=== PATIENT | female | born 1980 | race American Indian/Alaskan Native ===

== ENCOUNTER 2022-01-27 22:58 | Emergency (ER) | payer MEDICAID ==
[2022-01-28] MEDS ORDERED: SODIUM CHLORIDE 0.9% 1000 ML 1,000 ML IV ONE (02:34)
[2022-01-28] MEDS ORDERED: ONDANSETRON 4 MG/2 ML INJ IV ONE ×2 (02:34→05:55)
[2022-01-28] MEDS ORDERED: MORPHINE 4 MG/1 ML INJ IV ONE ×2 (02:34→04:18)
[2022-01-28 03:01] LABS: Basophils # (Auto) 0.1 K/mm3 (0.0-0.1); Basophils % (Auto) 1.8 % (0.0-1.8); Eosinophils # (Auto) 0.2 K/mm3 (0.0-0.4); Eosinophils % (Auto) 2.9 % (0.0-4.3); Hematocrit 33.7 % (30.3-42.9); Lymphocytes # (Auto) 1.7 K/mm3 (1.2-5.4); Mean Corpuscular HGB Conc 33 % (30-34); Mean Corpuscular Volume 75 fl (79-97); Monocytes # (Auto) 0.7 K/mm3 (0.0-0.8); Monocytes % (Auto) 11.8 % (0.0-7.3); Platelet Count 232 K/mm3 (140-440); Red Blood Count 4.52 M/mm3 (3.65-5.03); Red Cell Distribution Width 19.7 % (13.2-15.2)
[2022-01-28 03:23] LABS: Alanine Aminotransferase 14 units/L (7-56); Albumin 4.3 g/dL (3.9-5); BUN/Creatinine Ratio 14; Blood Urea Nitrogen 11 mg/dL (7-17); Hemolysis Index 15
[2022-01-28 04:11] LABS: Bacteria,Urine 2+ /HPF (Negative); Bilirubin,Urine NEG (Negative); Blood,Urine LG (Negative); Calcium Oxalate Crystals,Urine 3+; Color,Urine Yellow (Yellow); Protein,Urine <15 mg/dL mg/dL (Negative); Urobilinogen,Urine < 2.0 mg/dL (<2.0)
[2022-01-28] MEDS ORDERED: METOCLOPRAMIDE 10 MG/2 ML INJ IV ONE (04:19)
[2022-01-28] MEDS ORDERED: LIDOCAINE-MPF (1%) 10 MG/1 ML VIAL 5 ML INFILTRATI ONE (05:01)
--- NOTE | 2022-01-28 05:42 | Emergency Department Report ---
ED Female HPI - General Chief complaint: Abdominal Pain Stated complaint: 3 WEEKS VAG BLEEDING Source: patient Mode of arrival: Ambulatory Limitations: No Limitations - History of Present Illness Initial comments: Patient is a A0 41-year-old -[place] female with no past medical history who presents to the ED with complaint of acute onset persistent heavy vaginal bleeding intermittently for the last 3 weeks with suprapubic pain. Patient also states that her LMP was January 13, 2022 and ever since she started bleeding the bleeding has not stopped. Patient states that in the last 3 days the bleeding has been heavier and that the pain has also worsened. Patient states that tonight she was unable to sleep because of worsening pelvic pain and heavy vaginal bleeding with clots. Patient denies dizziness, syncope, chest pain or shortness of breath, nausea and vomiting or diarrhea, fever, chills, cough, sore throat, headache, traumatic injury, back pain, dysuria, urinary frequency and urgency. MD Complaint: vaginal bleeding, pelvic pain -: Sudden, week(s) (3) Location: suprapubic, other (Vaginal ) Radiation: suprapubic, LLQ, RLQ Severity: severe Severity scale (0 -10): 8 Quality: cramping, sharp Consistency: constant Improves with: none Worsens with: none Are you Now?: No (Unsure) Associated Symptoms: denies other symptoms, vaginal bleeding, abdominal pain (Suprapubic pain). denies: vaginal discharge, nausea/vomiting, fever/chills, headaches, loss of appetite, dysuria, hematuria, rash, shortness of breath, syncope, weakness - Related Data Sexually active: Yes : 4 Para: 4 A: 0 Previous Rx's Medication Instructions Recorded Last Taken Type Ibuprofen [Motrin] 800 mg PO Q8HR PRN #30 tablet 01/28/22 Unknown Rx Ondansetron [Zofran Odt] 4 mg PO Q8HR PRN #20 tab.rapdis 01/28/22 Unknown Rx oxyCODONE /ACETAMINOPHEN [Percocet 1 tab PO Q6HR PRN #12 tablet 01/28/22 Unknown Rx 5/325] Allergies Allergy/AdvReac Type Severity Reaction Status Date / Time No Known Allergies Allergy Verified 02/21/16 02:58 ED Review of Systems ROS: Stated complaint: 3 WEEKS VAG BLEEDING Other details as noted in HPI Constitutional: denies: chills, fever Eyes: denies: eye pain, eye discharge, vision change ENT: denies: ear pain, throat pain Respiratory: denies: cough, shortness of breath, wheezing Cardiovascular: denies: chest pain, palpitations, dyspnea on exertion, edema, syncope Endocrine: no symptoms reported Gastrointestinal: abdominal pain (Suprapubic pain). denies: nausea, vomiting, diarrhea Genitourinary: abnormal menses (Heavy vaginal bleeding). denies: urgency, dysuria, discharge Musculoskeletal: denies: back pain, joint swelling, arthralgia Skin: denies: rash, lesions Neurological: denies: headache, weakness, paresthesias Psychiatric: denies: anxiety, depression Hematological/Lymphatic: denies: easy bleeding, easy bruising ED Past Medical Hx - Social History Smoking Status: Never Smoker Substance Use Type: None - Medications Home Medications: Home Medications Medication Instructions Recorded Confirmed Last Taken Type Ibuprofen [Motrin] 800 mg PO Q8HR PRN #30 tablet 01/28/22 Unknown Rx Ondansetron [Zofran Odt] 4 mg PO Q8HR PRN #20 tab.rapdis 01/28/22 Unknown Rx oxyCODONE /ACETAMINOPHEN [Percocet 1 tab PO Q6HR PRN #12 tablet 01/28/22 Unknown Rx 5/325] ED Physical Exam - General Limitations: No Limitations General appearance: alert, in no apparent distress - Head Head exam: Present: atraumatic, normocephalic, normal inspection - Eye Eye exam: Present: normal appearance, PERRL, EOMI Pupils: Present: normal accommodation - ENT ENT exam: Present: normal exam, normal orophraynx, mucous membranes moist, TM's normal bilaterally, normal external ear exam - Neck Neck exam: Present: normal inspection, full ROM. Absent: tenderness, lymphadenopathy - Respiratory Respiratory exam: Present: normal lung sounds bilaterally. Absent: respiratory distress, wheezes, rales, chest wall tenderness, accessory muscle use, decreased breath sounds, prolonged expiratory - Cardiovascular Cardiovascular Exam: Present: normal rhythm, tachycardia, normal heart sounds. Absent: systolic murmur, diastolic murmur, rubs, gallop - GI/Abdominal GI/Abdominal exam: Present: soft, tenderness (Palpable suprapubic tenderness), normal bowel sounds. Absent: guarding, rebound, rigid, hyperactive bowel sounds, hypoactive bowel sounds, organomegaly - Bi-manual exam: Present: other (Pelvic exam deferred at this time patient declined) - Extremities Exam Extremities exam: Present: normal inspection, full ROM, normal capillary refill. Absent: tenderness - Back Exam Back exam: Present: normal inspection, full ROM. Absent: tenderness, CVA tenderness (R), CVA tenderness (L), muscle spasm, paraspinal tenderness, v ertebral tenderness - Neurological Exam Neurological exam: Present: alert, oriented X3, CN II-XII intact, normal gait, reflexes normal - Psychiatric Psychiatric exam: Present: normal affect, normal mood, anxious - Skin Skin exam: Present: warm, dry, intact, normal color. Absent: rash ED Course Vital Signs 01/27/22 01/28/22 23:06 02:24 Temperature 98.5 F Pulse Rate 102 H 90 Respiratory 16 14 Rate Blood Pressure 135/98 Blood Pressure 139/85 [Right] O2 Sat by Pulse 94 100 Oximetry - Reevaluation(s) Reevaluation #1: 01/28/22 06:25 I paged and discussed the patient's case and findings with the CLERICAL CLERK physician on-call Dr. Covarrubias who advised that the patient be treated in the ED with methotrexate immediately for suspected ectopic and that the patient be discharged home on pain medications with ectopic precautions and be advised to follow-up with his clinic within 3 days for further evaluation. ED Medical Decision Making - Lab Data Result diagrams: 01/28/22 02:42 01/28/22 02:42 - Radiology Data Radiology results: report reviewed, image reviewed [facility] [address] [place] [address] Ultrasound Report Signed Patient: ISSAC RÍOS MR#: [id number] : 1980 Acct:[id number] Age/Sex: 41 / F ADM Date: 01/27/22 Loc: ED Attending Dr: Ordering Physician: APRIL TAEVRAS Date of Service: 01/28/22 Procedure(s): US OB <= 14 weeks fetus Accession Number(s): [id number] cc: APRIL TAVERAS US OB <= 14 weeks fetus INDICATION / CLINICAL INFORMATION: PAIN, BLEEDING COMPARISON: None available. TECHNIQUE: Using a transcutaneous probe, multiple grayscale, color Doppler, and spectral Doppler images of the uterus and fetus were captured and stored. FINDINGS: Uterus measures 11.5 x 6.9 x 7.6 cm. The endometrium appears thickened with no evidence of intrauterine gestational sac. Right ovary measures 4.3 x 2.9 x 3.1 cm. Small right ovarian cysts present. Left ovary measures 4.7 x 2.3 x 2.9 cm. Left ovary is unremarkable. The visualized portion of the urinary bladder is unremarkable. IMPRESSION: 1. No ultrasound evidence of intrauterine gestation. Signer Name: Jackson Garcia II, MD Signed: 01/28/2022 5:37 AM Workstation Name: [id number] Transcribed By: KOTA Dictated By: JACKSON GARCIA II, MD Electronically Authenticated By: JACKSON GARCIA II, MD Signed Date/Time: 01/28/22536 DD/ 4 TD/TT: - Medical Decision Making This is a A0 41-year-old -[place]ian female with no past medical history who presents to the ED with complaint of acute onset persistent heavy vaginal bleeding intermittently for the last 3 weeks with suprapubic pain. Patient also states that her LMP was January 13, 2022 and ever since she started bleeding the bleeding has not stopped. Patient states that in the last 3 days the bleeding has been heavier and that the pain has also worsened. Patient states that tonight she was unable to sleep because of worsening pelvic pain and heavy vaginal bleeding with clots. In the ED, patient is alert and oriented x3 and is not in any distress but appears to be in significant pain. Patient was treated for pain in the ED and was given antiemetics and normal saline 1 L IV bolus x1. Lab test results were reviewed and showed a positive serum hCG with hCG quant of 4906. Urinalysis was unremarkable except for gross hematuria. The rest of the lab test results were nonactionable. Patient declined transvaginal ultrasound but consented to pelvic ultrasound. The pelvic ultrasound showed no IUP. On reevaluation, patient pain is well controlled medication. These findings were discussed with the CLERICAL CLERK physician on-call Dr. Covarrubias who advised that the patient be treated in the ED with methotrexate immediately for suspected ectopic and that the patient be discharged home on pain medications with ectopic precautions and be advised to follow-up with his clinic within 3 days for further evaluation. Patient was therefore discharged home after the treatment with methotrexate in the ED. Patient was advised to follow-up with Dr. Covarrubias in 3 to 5 days for reevaluation. Patient is advised to contact Dr. Covarrubias for follow-up of his in the morning on Thursday December 30, 2021 to schedule a follow-up appointment the next week. Patient was advised to return to the ED immediately if symptoms get worse. - Differential Diagnosis Ectopic ; UTI; dysmenorrhea; threatened miscarriage; fibroids Critical care attestation.: If time is entered above; I have spent that time in minutes in the direct care of this critically ill patient, excluding procedure time. ED Disposition Clinical Impression: as incidental finding, Threatened miscarriage in early , Nausea and vomiting in adult patient, Abdominal pain during in first trimester, Vaginal bleeding in patient after first trimester Ectopic without intrauterine Qualifiers: Location of ectopic : unspecified location Qualified Code(s): O00.90 - Unspecified ectopic without intrauterine Disposition: 01 HOME / SELF CARE / HOMELESS Is pt being admited?: No Does the pt Need Aspirin: No Condition: Stable Instructions: First Trimester of , Asis-il-Cuus, Vaginal Bleeding During , First Trimester, Nausea and Vomiting, Adult, [id number], Threatened Miscarriage, [id number], Abdominal Pain (ED), Methotrexate Treatment for an Ectopic , Ectopic , [id number] Additional Instructions: Maintain a complete pelvic rest, take medication as needed for pain, follow-up with the CLERICAL CLERK physician on Sunday January 02, 2022 for further evaluation. Contact the Kim's office first thing in the morning on December or Thursday December 30, 2021 to schedule a follow-up appointment. Return to the ED immediately if symptoms get worse. Prescriptions: Ibuprofen [Motrin] 800 mg PO Q8HR PRN #30 tablet PRN Reason: Pain , Severe (7-10) oxyCODONE /ACETAMINOPHEN [Percocet 5/325] 1 tab PO Q6HR PRN #12 tablet PRN Reason: Pain Ondansetron [Zofran Odt] 4 mg PO Q8HR PRN #20 tab.rapdis PRN Reason: Nausea Referrals: SANA COVARRUBIAS MD [Staff Physician] - 3-5 Days Forms: Work/School Release Form(ED) Time of Disposition: 06:31 Print Language: MALAGASY
[2022-01-28] MEDS ORDERED: HYDROmorphone 1 MG/1 ML INJ IV ONE (05:55)
[2022-01-28] MEDS ORDERED: metHOTREXate sodium 125 MG/5 ML SYRINGE IM ONE ×2 (07:30)
[2022-01-28 07:54] VITALS: BP 151/107
== END 2022-01-28 09:03 | disposition home or self-care (01) ==
LOC: ED 22:58
DX: O20.0 Threatened abortion (principal); O21.9 Vomiting of pregnancy, unspecified; O26.851 Spotting complicating pregnancy, first trimester; Z3A.14 14 weeks gestation of pregnancy
CPT/HCPCS: 36415; 76801; 80053; 81001; 83690; 84702; 84703; 85025; 86900; 86901; 96361; 96374; 96375; 96376; 99284; J1170; J2270; J2405; J2765; J7030; J9260